=== PATIENT | male | born 1955 | race Caucasian/White ===

== ENCOUNTER → 2017-01-26 | Outpatient (CLI) | payer OTHER ==
[~2017-01-26] MED LIST: AMARYL2 MG PO; ASPIRIN81 M2 PO; ATORVASTATIN CA40 MG PO; FISH OIL 1,001000 M2 PO; LISINOPRIL20 MG PO; METFORMIN HCL500 MG PO; PIOGLITAZONE15 MG; ZYRTEC10 M5 PO
--- NOTE | ~2017-01-26 | EKG ---
[place] [address] [facility] [place] [address] ELECTROCARDIOGRAM REPORT Name: ARELY DAVIDSON Room #: REG CLI [facility].#: [id number] Admission: 01/26/17 Attend Phys: Jose Bryant MD Discharge: Date of : 57 Report #: [id number] THIS REPORT FOR: //name// [facility] Test Date: 2017-01-26 Test Time: 09:27:47 Pat Name: ARELY DAVIDSON Department: Room: Gender: Van Loader: Selena BOSS : 1955 Requested By: Jose Bryant Order Number: [id number] MD: Nico Poon Measurements Intervals [place] Rate: 73 P: 12 OR: 190 QRS: -2 QRSD: 108 T: -9 QT: 383 QTc: 422 Interpretive Statements Sinus rhythm Atrial premature complex Inferior infarct, age indeterminate No previous ECG available for comparison Electronically Signed On 01-27-2017 17:22:11 CDT by Nico Poon [email or web address] <ELECTRONICALLY SIGNED> By: Nico Poon MD, [facility] 01/27/17 1722 0927 6 Nico Poon MD, FACC /EPI
== END ==
LOC: LITH 08:53
DX: N20.1 Calculus of ureter (principal); E78.00 Pure hypercholesterolemia, unspecified; E11.9 Type 2 diabetes mellitus without complications; K75.89 Other specified inflammatory liver diseases; Z98.890 Other specified postprocedural states; Z79.82 Long term (current) use of aspirin; Z79.899 Other long term (current) drug therapy